=== PATIENT | female | born 1955 | race Caucasian/White ===

== ENCOUNTER → 2018-07-03 13:15 | Outpatient (CLI) | payer OTHER, SELFPAY ==
--- NOTE | 2018-07-03 | DI.US.S_ITS ---
PROCEDURE: US THYROID INDICATIONS: THYROMEGALY TECHNIQUE: Real-time scanning was performed of the thyroid gland, with image documentation. COMPARISON: None. FINDINGS: Right: Thyroid lobe measures 4.4 x 1.4 x 1.7 cm, and is mildly heterogeneous in echotexture. Left: Thyroid lobe measures 3.6 x 1.6 x 1.5 cm, and is mildly heterogeneous in echotexture. Isthmus: 1.0 mm thick. IMPRESSION: Mildly heterogeneous thyroid and no focal nodules. Dictated by: Brennan SABILLON Interpreted: Armand Branch MD on 07/03/2018 at 14:44 Approved by: Florentino Branch M.D. on 07/03/2018 at 16:56
== END ==
PROVIDERS: PCP Family Medicine; Visit Provider Family Medicine
DX: E01.0 Iodine-deficiency related diffuse (endemic) goiter (principal)
CPT/HCPCS: 76536

== ENCOUNTER → 2019-01-09 11:21 | Outpatient (CLI) | payer OTHER, SELFPAY ==
--- NOTE | 2019-01-09 | DI.MG.S_ITS ---
BILATERAL DIGITAL SCREENING MAMMOGRAM 3D/2D WITH CAD: 01/09/2019 CLINICAL: Routine screening. Family history of breast cancer. Comparison is made to exams dated: 12/26/2017 mammogram, 12/13/2017 mammogram, and 11/30/2016 mammogram - [facility]. The tissue of both breasts is heterogeneously dense. This may lower the sensitivity of mammography. Current study was also evaluated with a Computer Aided Detection (CAD) system. No significant masses, calcifications, or other findings are seen in either breast. There has been no significant interval change. IMPRESSION: NEGATIVE There is no mammographic evidence of malignancy. A 1 year screening mammogram is recommended. This exam was interpreted at Station ID: [id number]. NOTE: For mammograms, a report in lay terms will be sent to the patient. Approximately 15% of breast malignancies will not be visualized mammographically. In the management of a palpable breast mass, a negative mammogram must not discourage biopsy of a clinically suspicious lesion. Electronically Signed By: Fly brush/james:01/09/2019 17:56:06 letter sent: Normal Exam ACR BI-RADS Category 1: Negative 3341F
== END ==
PROVIDERS: PCP Family Medicine; Visit Provider Family Medicine
DX: Z12.31 Encounter for screening mammogram for malignant neoplasm of breast (principal); Z80.3 Family history of malignant neoplasm of breast
CPT/HCPCS: 77063; 77067

== ENCOUNTER → 2019-02-23 12:42 | Outpatient (CLI) | payer OTHER, SELFPAY | PROVIDERS: PCP Family Medicine; Visit Provider Family Medicine | DX: M85.851 Other specified disorders of bone density and structure, right thigh (principal); Z78.0 Asymptomatic menopausal state; Z82.62 Family history of osteoporosis | CPT/HCPCS: 77080 ==

== ENCOUNTER 2019-08-03 12:55 | Day surgery (SDC) | payer OTHER, SELFPAY ==
[2019-08-03] VITALS (9 sets, daily range): BP systolic 92–131; BP diastolic 52–75; PULSE 59–67; RESP 12–19; TEMP 36–37.1; O2SAT 95–98; BMI 22.9
--- NOTE | 2019-08-03 | PATH_ITS ---
[facility] Accession Number: [id number] . 01 Material submitted: . cecum - CECAL POLYP, 6-8 MM X2 . 02 Diagnosis: Cecum, Polyp 6-8 mm x2, Biopsy: Fragments of tubular adenoma and sessile serrated adenoma. [facility] 08/06/2019 1031 Local . 02 Electronically signed: . Aura May MD, Pathologist NPI- [id number] . 01 Gross description: . CECAL POLYP, 6-8 MM X2: Received in formalin are 4 fragment(s) of conway, soft tissue measuring 0.1 x 0.1 x 0.1 cm to 0.2 x 0.2 x 0.2 cm which is entirely submitted and submitted entirely in 1 cassette(s) /[facility] [place] 08/03/2019 2324 Local . 02 Pathologist provided ICD-10: D12.0 . 02 CPT . 832211 Performed at: 01 [facility] [address], [place], [place] [id number] MD Christian Arias MD Phone: [phone] Performed at: 02 [facility] [address] [place], [place] [id number] MD Aura May MD Phone: [phone]
[2019-08-03] MEDS: HYOSCYAMINE 0.125 MG TABLET PO (13:16)
[2019-08-03] MEDS: SODIUM CHLORIDE 0.9% 1,000 ML 84 ML IV (13:24)
--- NOTE | 2019-08-03 13:49 | PM.OP.ENDO ---
Operative Date/Time/Diagnoses Date of procedure: 08/03/19 Time of procedure: 13:49 Pre-op diagnosis: 1. History of colon polyps 2. Screening for colon cancer Post-op diagnosis: other (Cecal polyp x2, 6-8 mm, removed with cold biopsy forceps) Procedure & Clinicians Study performed: Colonoscopy Same procedure as scheduled: Yes Indications: 1. History of colon polyps 2. Screening for colon cancer Surgeon: Nunu Castañeda Procedure Notes Procedure in detail: ENDOSCOPIST: Nunu Castañeda MD Sedation RN: Luis Alberto Foley RN Sedation start time: 1:53 p.m. Sedation in time: 2:18 p.m. PROCEDURE: Colonoscopy with biopsy INDICATIONS: 1. History of colon polyps 2. Screening for colon cancer MEDICATION: Levsin 0.125 mg sublingual, incremental doses of Versed and fentanyl until appropriate level sedation achieved. ASA CLASS: 2 CECAL WITHDRAWAL TIME: 13 minutes COMPLICATIONS: None. EXTENT OF PROCEDURE: Cecum. QUALITY OF PREP: Good with portions of liquid stool. PROCEDURE: Prior to insertion of the colonoscope, a digital rectal examination was accomplished with circumferential palpation of the distal rectal mucosa without significant findings being noted. The high-definition pediatric colonoscope was passed into the rectum in the usual fashion and advanced over to the cecum without difficulty. The ileocecal valve, appendiceal stoma, and medial wall all could be inspected and 2 cecal polyps were seen, 6-8 mm, removed with cold biopsy forceps, excellent hemostasis noted. ASCENDING COLON: As the colonoscope was withdrawn, care was taken to expose and inspect the haustral folds and no abnormalities were seen. HEPATIC FLEXURE: Normal no polyps, diverticula or other abnormalities. TRANSVERSE COLON: Normal no polyps, diverticula or other abnormalities. DESCENDING COLON: Normal no polyps, diverticula or other abnormalities. SIGMOID COLON: Normal no polyps, diverticula or other abnormalities. RECTUM: Normal. J maneuver was produced. There was no significant perianal disease. The J maneuver was broken. The remainder of the rectum was inspected and there was no external hemorrhoid disease. The scope was withdrawn. IMPRESSION: 1. Cecal polyp x2, 6-8 mm, removed with cold biopsy forceps PLAN: 1. Follow-up in clinic status post pathology results. The possibility of a missed lesion including a malignancy has been discussed with the patient previously. Potential alarm symptoms have been discussed and should be reported immediately. Scope withdrawal time: 13 Sedation minutes: 25 Findings: polyp Specimen(s): other (Cecal x2) Complications: none Impression: Cecal polyp x2, 6-8 mm Post-procedure Recommendations: Will call with biopsy results Follow up: weeks (2) Disposition: PACU
[2019-08-03] MEDS: fentaNYL 250 MCG/5 ML INJ IV (14:40)
[2019-08-03] MEDS: MIDAZOLAM 5 MG/5 ML VIAL IV (14:40)
--- NOTE | 2019-08-03 14:41 | SUR.OPER ---
A good ECG tracing was obtained at the start of the case. Shortly after starting the procedure the ECG stopped working and various methods of trouble shooting was unsuccessful. We used a second machine and had good results.
--- NOTE | 2019-08-03 16:04 | SUR.PHASEII ---
1540 Home w/spouse. Denies light-headedness/dizziness. Tolerated fluids well, stable on feet.
== END 2019-08-03 15:40 | disposition home or self-care (01) ==
PROVIDERS: PCP Family Medicine; Visit Provider Student in an Organized Health Care Education/Training Program
PROC: 0DJD8ZZ Inspection of Lower Intestinal Tract, Via Natural or Artificial Opening Endoscopic (ICD-10-PCS; CPT 45378; principal; 2019-08-03 14:00)
DX: Z86.010 Personal history of colon polyps (principal); D12.0 Benign neoplasm of cecum
CPT/HCPCS: 45380; J2250; J3010

== ENCOUNTER → 2020-01-11 11:02 | Outpatient (CLI) | payer OTHER, SELFPAY ==
--- NOTE | 2020-01-11 11:04 | DI.MG.S_ITS ---
BILATERAL DIGITAL SCREENING MAMMOGRAM 3D/2D WITH CAD: 01/11/2020 CLINICAL: Routine screening. Family history of breast cancer. Comparison is made to exams dated: 01/09/2019 mammogram, 12/26/2017 mammogram, 12/13/2017 mammogram, and 11/30/2016 mammogram - [facility]. The tissue of both breasts is heterogeneously dense. This may lower the sensitivity of mammography. Current study was also evaluated with a Computer Aided Detection (CAD) system. No significant masses, calcifications, or other findings are seen in either breast. There has been no significant interval change. IMPRESSION: NEGATIVE There is no mammographic evidence of malignancy. A 1 year screening mammogram is recommended. This exam was interpreted at Station ID: [id number]. NOTE: For mammograms, a report in lay terms will be sent to the patient. Approximately 15% of breast malignancies will not be visualized mammographically. In the management of a palpable breast mass, a negative mammogram must not discourage biopsy of a clinically suspicious lesion. Electronically Signed By: Pamela daugherty/james:01/11/2020 12:55:41 letter sent: Normal Exam ACR BI-RADS Category 1: Negative 3341F
== END ==
PROVIDERS: PCP Family Medicine; Referring Provider Family Medicine; Visit Provider Family Medicine
DX: Z12.31 Encounter for screening mammogram for malignant neoplasm of breast (principal); Z80.3 Family history of malignant neoplasm of breast
CPT/HCPCS: 77063; 77067

== ENCOUNTER → 2021-04-03 15:14 | Outpatient (CLI) | payer OTHER, SELFPAY ==
--- NOTE | 2021-04-03 | DI.MG.S_ITS ---
BILATERAL DIGITAL SCREENING MAMMOGRAM 3D/2D WITH CAD: 04/03/2021 CLINICAL: Routine screening. Family history of breast cancer. Comparison is made to exams dated: 01/11/2020 mammogram, 01/09/2019 mammogram, 12/13/2017 mammogram, 11/30/2016 mammogram, and 10/14/2015 mammogram - [facility]. The tissue of both breasts is heterogeneously dense. This may lower the sensitivity of mammography. Current study was also evaluated with a Computer Aided Detection (CAD) system. No significant masses, calcifications, or other findings are seen in either breast. There has been no significant interval change. IMPRESSION: NEGATIVE There is no mammographic evidence of malignancy. A 1 year screening mammogram is recommended. This exam was interpreted at Station ID: [id number]. NOTE: For mammograms, a report in lay terms will be sent to the patient. Approximately 15% of breast malignancies will not be visualized mammographically. In the management of a palpable breast mass, a negative mammogram must not discourage biopsy of a clinically suspicious lesion. Electronically Signed By: Brian campa/james:04/03/2021 16:14:14 letter sent: Normal Exam ACR BI-RADS Category 1: Negative 3341F
== END ==
PROVIDERS: PCP Family Medicine; Referring Provider Family Medicine; Visit Provider Family Medicine
DX: Z12.31 Encounter for screening mammogram for malignant neoplasm of breast (principal); Z80.3 Family history of malignant neoplasm of breast
CPT/HCPCS: 77063; 77067

== ENCOUNTER → 2021-08-14 11:19 | Outpatient (CLI) | payer OTHER, SELFPAY ==
--- NOTE | 2021-08-14 | DI.RAD.S_ITS ---
PROCEDURE: XR HIP W PEL IF DONE LT 2V INDICATIONS: LEFT HIP PAIN TECHNIQUE: AP pelvis with lateral view(s) of the left hip(s). COMPARISON: None. FINDINGS: Bones: No fractures or dislocations. Pelvic ring appears intact. Symmetric narrowing of the femoral acetabular joint spaces with osteophytosis. No suspicious bony lesions. Soft tissues: The visualized bowel gas pattern is normal. No suspicious soft tissue calcifications. IMPRESSION: No acute osseous abnormality. Dictated by: Derrek Salazar M.D. on 08/14/2021 at 12:07 Approved by: Derrek Salazar M.D. on 08/14/2021 at 12:15
== END ==
PROVIDERS: PCP Family Medicine; Referring Provider Family Medicine; Visit Provider Family Medicine
DX: M25.552 Pain in left hip (principal)
CPT/HCPCS: 73502

== ENCOUNTER → 2022-04-06 10:48 | Outpatient (CLI) | payer OTHER, SELFPAY ==
--- NOTE | 2022-04-06 | DI.MG.S_ITS ---
BILATERAL DIGITAL SCREENING MAMMOGRAM 3D/2D WITH CAD: 04/06/2022 CLINICAL: Routine screening. Family history of breast cancer. Comparison is made to exams dated: 04/03/2021 mammogram, 01/11/2020 mammogram, and 01/09/2019 mammogram - [facility]. The tissue of both breasts is heterogeneously dense. This may lower the sensitivity of mammography. Current study was also evaluated with a Computer Aided Detection (CAD) system. There is a new oval asymmetry in the left breast posterior depth central to the nipple seen on the craniocaudal view only. No other significant masses, calcifications, or other findings are seen in either breast. IMPRESSION: INCOMPLETE: NEEDS ADDITIONAL IMAGING EVALUATION The new oval asymmetry in the left breast is indeterminate. Additional views with possible ultrasound are recommended. This exam was interpreted at Station ID: [id number]. NOTE: For mammograms, a report in lay terms will be sent to the patient. Approximately 15% of breast malignancies will not be visualized mammographically. In the management of a palpable breast mass, a negative mammogram must not discourage biopsy of a clinically suspicious lesion. Electronically Signed By: Micah davies/james:04/06/2022 12:52:52 letter sent: Additional Imaging Needed ACR BI-RADS Category 0: Incomplete 3340F
== END ==
PROVIDERS: PCP Family Medicine; Referring Provider Family Medicine; Visit Provider Family Medicine
DX: Z12.31 Encounter for screening mammogram for malignant neoplasm of breast (principal); Z80.3 Family history of malignant neoplasm of breast; N64.89 Other specified disorders of breast; M85.89 Other specified disorders of bone density and structure, multiple sites
CPT/HCPCS: 77063; 77067; 77080

== ENCOUNTER → 2023-04-14 12:31 | Outpatient (CLI) | payer MEDICARE, SELFPAY ==
--- NOTE | 2023-04-14 | DI.MG.S_ITS ---
BILATERAL DIGITAL SCREENING MAMMOGRAM 3D/2D WITH CAD: 04/14/2023 CLINICAL: Routine screening. Family history of breast cancer. Comparison is made to exams dated: 04/06/2022 mammogram, 04/03/2021 mammogram, and 01/11/2020 mammogram - [facility]. Both breasts are heterogeneously dense, which may obscure small masses (category c / 51-75% glandular tissue). Current study was also evaluated with a Computer Aided Detection (CAD) system. There is a mass in the left breast at 1 o'clock posterior depth. No other significant masses, calcifications, or other findings are seen in either breast. IMPRESSION: INCOMPLETE: NEEDS ADDITIONAL IMAGING EVALUATION The mass in the left breast is indeterminate. Additional views with possible ultrasound are recommended. Based on Tyrer-Cuzick model (a risk assessment model), the patient's lifetime risk is 24.3% and her 10 year risk is 12.2%. If a patient has an elevated risk, a more comprehensive evaluation should be considered and/or a referral to a genetic counselor. The [place] [employer], [employer], and NCCN Guidelines advise the consideration of Breast MRI as an adjunct to screening mammography in patients whose Lifetime risk to develop breast cancer is 20% or higher. This exam was interpreted at Station ID: [id number]. NOTE: For mammograms, a report in lay terms will be sent to the patient. Approximately 15% of breast malignancies will not be visualized mammographically. In the management of a palpable breast mass, a negative mammogram must not discourage biopsy of a clinically suspicious lesion. Electronically Signed By: Peter Dominguez M.D. lc/:04/14/2023 13:08:13 letter sent: Additional Imaging Needed ACR BI-RADS Category 0: Incomplete 3340F
== END ==
PROVIDERS: PCP Family Medicine; Referring Provider Family Medicine; Visit Provider Family Medicine
DX: Z12.31 Encounter for screening mammogram for malignant neoplasm of breast (principal); Z80.3 Family history of malignant neoplasm of breast
CPT/HCPCS: 77063; 77067

== ENCOUNTER → 2023-04-29 08:45 | Outpatient (CLI) | payer MEDICARE, SELFPAY ==
--- NOTE | 2023-04-29 | DI.MG.S_ITS ---
UNILATERAL LEFT DIGITAL DIAGNOSTIC MAMMOGRAM 3D/2D WITH ADDITIONAL VIEWS: 04/29/2023 CLINICAL: Additional evaluation requested from prior study. Comparison is made to exams dated: 04/14/2023 mammogram - [facility], 04/20/2022 ultrasound, 04/20/2022 mammogram - [facility], 04/06/2022 mammogram, and 04/03/2021 mammogram - [facility]. The left breast is heterogeneously dense, which may obscure small masses (category c / 51-75% glandular tissue). There is a 0.5 cm oval equal density mass in the left breast at 2 o'clock middle depth. This is seen in additional views. No other significant masses or calcifications are seen in the breast. IMPRESSION: INCOMPLETE: NEEDS ADDITIONAL IMAGING EVALUATION The 0.5 cm oval equal density mass in the left breast resembles a cyst or a lymph node and is indeterminate. An ultrasound is recommended for further evaluation and is scheduled to immediately follow this examination. Based on Tyrer-Cuzick model (a risk assessment model), the patient's lifetime risk is 24.3% and her 10 year risk is 12.2%. If a patient has an elevated risk, a more comprehensive evaluation should be considered and/or a referral to a genetic counselor. The [place] [employer], [employer], and NCCN Guidelines advise the consideration of Breast MRI as an adjunct to screening mammography in patients whose Lifetime risk to develop breast cancer is 20% or higher. This exam was interpreted at Station ID: [id number]. NOTE: For mammograms, a report in lay terms will be sent to the patient. Approximately 15% of breast malignancies will not be visualized mammographically. In the management of a palpable breast mass, a negative mammogram must not discourage biopsy of a clinically suspicious lesion. Electronically Signed By: Hipolito Lovelace M.D. aty/:04/29/2023 09:09:53 ACR BI-RADS Category 0: Incomplete 3340F
--- NOTE | 2023-04-29 | DI.US.S_ITS ---
ULTRASOUND OF LEFT BREAST: 04/29/2023 CLINICAL: Additional views of left breast. Comparison is made to exams dated: 04/29/2023 mammogram, 04/14/2023 mammogram - [facility], 04/20/2022 ultrasound, and 04/20/2022 mammogram - [facility]. Color flow and real-time ultrasound of the left breast were performed. Carty scale images of the real-time examination were reviewed. There is a 0.5 cm x 0.3 cm x 0.4 cm wider than tall oval cyst in the left breast at 1 o'clock middle depth 4 cm from the nipple. This oval cyst is hypoechoic with internal echoes. This correlates with mammography findings. Color flow imaging demonstrates that there is no vascularity present. IMPRESSION: PROBABLY BENIGN The 0.5 cm x 0.3 cm x 0.4 cm wider than tall oval cyst in the left breast is consistent with a complicated cyst and is probably benign. A follow-up left mammogram and an ultrasound in 6 months is recommended to demonstrate stability. Findings and recommendations were conveyed to the patient during today's evaluation. This exam was interpreted at Station ID: [id number]. Electronically Signed By: Hipolito Lovelace M.D. aty/:04/29/2023 10:03:36 letter sent: Followup Recommended Ultrasound BI-RADS: 3 Probably benign
== END ==
PROVIDERS: PCP Family Medicine; Referring Provider Family Medicine; Visit Provider Family Medicine
DX: R92.8 Other abnormal and inconclusive findings on diagnostic imaging of breast (principal); N60.02 Solitary cyst of left breast
CPT/HCPCS: 76642; 77065; G0279

== ENCOUNTER → 2023-10-25 10:25 | Outpatient (CLI) | payer MEDICARE, SELFPAY ==
--- NOTE | 2023-10-25 | DI.US.S_ITS ---
LIMITED ULTRASOUND OF LEFT BREAST: 10/25/2023 CLINICAL: Patient returns today to evaluate a focal asymmetry in the left breast. Comparison is made to exams dated: 10/25/2023 mammogram, 04/29/2023 ultrasound, 04/29/2023 mammogram, 04/14/2023 mammogram - [facility], 04/20/2022 ultrasound, and 04/20/2022 mammogram - [facility]. Color flow ultrasound of the left breast 1 o'clock region was performed. Carty scale images of the real-time examination were reviewed. There is a 0.5 cm x 0.5 cm x 0.4 cm oval cyst in the left breast at 1 o'clock middle depth 4 cm from the nipple. This oval cyst is hypoechoic with a well-defined boundary and posterior acoustic enhancement. This abnormality is not significantly changed and correlates with mammography findings. Color flow imaging demonstrates that there is no vascularity present. IMPRESSION: PROBABLY BENIGN The 0.5 cm probably complicated cyst in the left breast is stable, and is probably benign. A follow-up left mammogram and an ultrasound in 6 months is recommended to demonstrate stability. The patient will be due for bilateral mammograms at that same visit. Findings and recommendations were conveyed to the patient at time of exam. This exam was interpreted at Station ID: [id number]. Electronically Signed By: Pamela daugherty/:10/25/2023 12:24:04 letter sent: Followup Recommended Ultrasound BI-RADS: 3 Probably benign
--- NOTE | 2023-10-25 | DI.MG.S_ITS ---
UNILATERAL LEFT DIGITAL DIAGNOSTIC MAMMOGRAM 3D/2D: 10/25/2023 CLINICAL: Short term follow up. Comparison is made to exams dated: 04/29/2023 mammogram, 04/14/2023 mammogram, 04/06/2022 mammogram, and 04/03/2021 mammogram - [facility]. The left breast is heterogeneously dense, which may obscure small masses (category c / 51-75% glandular tissue). There is a stable 0.5 cm oval equal density mass in the left breast at 2 o'clock middle depth. This is seen in additional views. No other significant masses or calcifications are seen in the breast. Left mammogram is otherwise stable. IMPRESSION: INCOMPLETE: NEEDS ADDITIONAL IMAGING EVALUATION The 0.5 cm mass in the left breast which resembles a cyst or a lymph node is stable. An ultrasound is recommended. This was performed immediately following this exam. Left mammogram is otherwise stable. Based on Tyrer-Cuzick model (a risk assessment model), the patient's lifetime risk is 23.3% and her 10 year risk is 12.2%. If a patient has an elevated risk, a more comprehensive evaluation should be considered and/or a referral to a genetic counselor. The [place] [employer], [employer] [employer], and NCCN Guidelines advise the consideration of Breast MRI as an adjunct to screening mammography in patients whose Lifetime risk to develop breast cancer is 20% or higher. This exam was interpreted at Station ID: [id number]. NOTE: For mammograms, a report in lay terms will be sent to the patient. Approximately 15% of breast malignancies will not be visualized mammographically. In the management of a palpable breast mass, a negative mammogram must not discourage biopsy of a clinically suspicious lesion. Electronically Signed By: Pamela daugherty/:10/25/2023 10:52:59 ACR BI-RADS Category 0: Incomplete 3340F
== END ==
PROVIDERS: PCP Family Medicine; Referring Provider Family Medicine; Visit Provider Family Medicine
DX: R92.8 Other abnormal and inconclusive findings on diagnostic imaging of breast; N60.02 Solitary cyst of left breast
CPT/HCPCS: 76642; 77065; G0279

== ENCOUNTER → 2024-04-17 10:18 | Outpatient (CLI) | payer MEDICARE, SELFPAY ==
--- NOTE | 2024-04-17 10:20 | DI.US.S_ITS ---
ULTRASOUND OF LEFT BREAST: 04/17/2024 CLINICAL: Patient returns for a 6 month follow up of the left breast. Comparison is mad to exams dated: 10/25/2023 ultrasoung, 10/25/2023 mammogram, 04/29/2023 ultrasound, 04/29/2023 mammogram, and 04/14/2023 mammogram - [facility] Color flow and real-time ultrasound of the left breast were performed. Carty scale images of the real-time examination were reviewed. Redemonstration of previously described 0.6 cm x 0.5 cm x 0.3 cm oval cyst in the left breast at 1 o'clock middle depth 4 cm from the nipple. This oval cyst is hypoechoic with a well-defined boundary and posterior acoustic enhancement. This abnormality is not significantly changed and correlates with mammography findings. Color flow imaging demonstrates that there is no vascularity present. IMPRESSION: PROBABLY BENIGN The 0.6 cm x 0.5 cm x 0.3 cm oval cyst in the left breast most likely is a complicated cyst and is probably benign. A follow-up bilateral mammogram and a left ultrasound in 12 months is recommended. Findings and recommendations were conveyed to the patient during today's evaluation. This exam was interpreted at Station ID: [id number]. Electronically Signed By: Hipolito ames/:04/17/2024 18:15:00 Entry: - 04/18/2024 16:32:43 letter sent: Followup Recommended Ultrasound BI-RADS: 3 Probably benign
--- NOTE | 2024-04-17 10:20 | DI.MG.S_ITS ---
BILATERAL DIGITAL DIAGNOSTIC MAMMOGRAM 3D/2D SHORT-TERM FOLLOW-UP: 04/17/2024 CLINICAL: Patient returns today to evaluate a focal asymmetry in the left breast. Comparison is made to exams dated: 10/25/2023 ultrasound, 10/25/2023 mammogram, 04/29/2023 ultrasound, 04/29/2023 mammogram, and 04/14/2023 mammogram - [facility]. Both breasts are heterogeneously dense, which may obscure small masses (category c / 51-75% glandular tissue). There is a 0.5 cm oval equal density mass in the left breast at 2 o'clock middle depth. This is not significantly changed. No other significant masses, calcifications, or other findings are seen in either breast. IMPRESSION: INCOMPLETE: NEEDS ADDITIONAL IMAGING EVALUATION The 0.5 cm oval equal density mass in the left breast resembles a cyst or a lymph node and is indeterminate. An ultrasound is recommended for further evaluation and is scheduled to immediately follow this examination. Based on Tyrer-Cuzick model (a risk assessment model), the patient's lifetime risk is 23.3% and her 10 year risk is 12.2%. If a patient has an elevated risk, a more comprehensive evaluation should be considered and/or a referral to a genetic counselor. The [place] [employer], [employer], and NCCN Guidelines advise the consideration of Breast MRI as an adjunct to screening mammography in patients whose Lifetime risk to develop breast cancer is 20% or higher. This exam was interpreted at Station ID: [id number]. NOTE: For mammograms, a report in lay terms will be sent to the patient. Approximately 15% of breast malignancies will not be visualized mammographically. In the management of a palpable breast mass, a negative mammogram must not discourage biopsy of a clinically suspicious lesion. Electronically Signed By: Hipolito Lovelace M.D. aty/:04/17/2024 18:05:21 ACR BI-RADS Category 0: Incomplete 3340F
--- NOTE | 2024-04-17 10:20 | DI.RAD.S_ITS ---
PROCEDURE: XR DEXA AXIAL SKELETON INDICATIONS: screening for osteoporosis COMPARISON: [facility], HEMAL, XR DEXA AXIAL SKELETON, 04/06/2022, 10:59. [facility], CR, XR DEXA AXIAL SKELETON, 02/23/2019, 13:07. FINDINGS: Lumbar Spine: Bone mineral density 1.049 g/cm2, T score 0, previously 0.2. Left Hip: Bone mineral density 0.796 g/cm2, T score -1.2, previously -1. Left Femoral Neck: Bone mineral density 0.706 g/cm2, T score -1.3, osteopenia. Right Hip: Bone mineral density is 0.660 g/cm2, T score -2.3, previously -2.0. Right Femoral Neck: Bone mineral density 0.572 g/cm2, T score -2.5, osteoporosis. Fracture Risk Calculation (when applicable): Not reported due to osteoporosis. (T score greater or equal to -1.0 to: NORMAL) (T score from -1.1 to -2.4: OSTEOPENIA) (T score less than or equal to -2.5: OSTEOPOROSIS) IMPRESSION: Osteoporosis. Follow-up guidelines as follows: Osteoporosis: Consider a repeat DEXA and Vertebral Fracture Assessment (VFA) exam in 2 years or sooner if medically necessary, to reassess this patient's status. Osteopenia: Consider a repeat DEXA in 2-3 years to reassess this patient's status, or if there is a new clinical indication. Normal: Consider a repeat DEXA in 5 years or sooner, or if there is a new clinical indication. All treatment decisions require clinical judgment and consideration of individual patient factors, including patient preferences, comorbidities, previous drug use, risk factors not captured in the FRAX model (e.g., frailty, falls, vitamin D deficiency, increased bone turnover, interval significant decline in bone density ) and possible under- or over-estimation of fracture risk by FRAX. In addition, the NOF Guide recommends that FDA-approved medical therapies be considered in postmenopausal women and men age >= 50 years with a: * Hip or vertebral (clinical or morphometric) fracture * T-score of <=-2.5 at the spine or hip * Ten-year fracture probability by FRAX of >= 3% for hip fracture or >=20% for major osteoporotic fracture. People with diagnosed cases of osteoporosis or at high risk for fracture should have regular bone mineral density tests. For patients eligible for Medicare, routine testing is allowed once every 2 years. The testing frequency can be increased to one year for patients who have rapidly progressing disease, those who are receiving or discontinuing medical therapy to restore bone mass, or have additional risk factors. Dictated by: Brandon Hartmann M.D. on 04/17/2024 at 13:56 Approved by: Brandon Hartmann M.D. on 04/17/2024 at 13:57
== END ==
LOC: MAMMO 10:18
PROVIDERS: PCP Family Medicine; Referring Provider Family Medicine; Visit Provider Family Medicine
DX: R92.8 Other abnormal and inconclusive findings on diagnostic imaging of breast (principal); R92.333 Mammographic heterogeneous density, bilateral breasts; N60.02 Solitary cyst of left breast; M81.0 Age-related osteoporosis without current pathological fracture
CPT/HCPCS: 76642; 77066; 77080; G0279

== ENCOUNTER → 2024-07-03 10:53 | Outpatient (CLI) | payer MEDICARE, SELFPAY ==
[2024-07-03 12:35] LABS: Add Manual Diff / Slide Review NO; Basophils Absolute Auto 0 /uL (0-100); Basophils Percent Auto 0.5 % (0-2); Eosinophils Absolute Auto 400 /uL (0-450); Eosinophils Percent Auto 7.4 % (2-4); Hematocrit 41.3 % (36-46); Hemoglobin 13.9 g/dL (12.0-16.0); Lymphocytes Absolute Auto 1400 /uL (1100-4500); Lymphocytes Percent Auto 25.5 % (25-40); Mean Corpuscular HGB Conc 33.6 % (30-36); Mean Corpuscular Hemoglobin 29.3 PG (26-34); Mean Corpuscular Volume 87.3 fL (80-100); Monocytes Absolute Auto 400 /uL (0-900); Monocytes Percent Auto 7.4 % (3-14); Neutrophils Absolute Auto 3200 /uL (1500-7000); Neutrophils Percent Auto 59.2 % (50-75); Platelet Count 231 X10^3/uL (150-400); Red Blood Cell Count 4.73 X10^6/uL (4.0-5.2); Red Cell Distribution Width 14.4 % (11.6-14.8); White Blood Cell Count 5.4 X10^3/uL (4.5-11.0)
[2024-07-03 13:04] LABS: Alanine Aminotransferase 60 IU/L (<35); Albumin 4.3 g/dL (3.5-5.0); Albumin Globulin Ratio 1.6 (1.0-2.8); Alkaline Phosphatase 78 U/L (38-126); Aspartate Aminotransferase 59 IU/L (14-36); BUN Creatinine Ratio 22.7 (6-22); Bilirubin Total 0.7 mg/dL (0.2-1.3); Blood Urea Nitrogen 15 mg/dL (7-17); Calcium 9.3 mg/dL (8.4-10.2); Carbon Dioxide 29 mmol/L (22-32); Chloride 105 mmol/L (98-107); Cholesterol 208 mg/dL (140-199); Estimated Glomerular Filt Rate > 60 mL/min (>60); Globulin 2.7 g/dL (1.7-4.1); Glucose 91 mg/dL (80-110); HDL Cholesterol 75 mg/dL (40-60); HEMOLYSIS < 15 (0-50); LDL Cholesterol Calculated 106 mg/dL (<100); Potassium 4.4 mmol/L (3.4-5.1); Sodium 141 mmol/L (137-145); Triglycerides 135 mg/dL (35-150)
== END ==
PROVIDERS: PCP Family Medicine; Referring Provider Family Medicine; Visit Provider Family Medicine
DX: Z00.00 Encounter for general adult medical examination without abnormal findings (principal); Z13.6 Encounter for screening for cardiovascular disorders
CPT/HCPCS: 36415; 80053; 80061; 85025

== ENCOUNTER 2024-07-24 12:05 | Day surgery (SDC) | payer MEDICARE, SELFPAY ==
[2024-07-24 12:28] VITALS: BP 147/79; PULSE 62; RESP 16; TEMP 36.2; O2SAT 97
[2024-07-24] MEDS: LACTATED RINGERS 1,000 ML 42 ML IV (12:38)
--- NOTE | 2024-07-24 13:16 | P.HP_ITS ---
History of Present Illness History of Present Illness Date Patient Seen: 07/24/24 Time Patient Seen: 13:17 Chief complaint: Colonoscopy Narrative: 68-year-old woman here for screening colonoscopy. Personal history of colonic polyps last colonoscopy 2018. No family history of colon cancer. No abdominal concerns today. [facility] Medical History (Updated 07/24/24 @ 13:17 by Osvaldo Rod MD) Osteopenia Fibroids Thyromegaly Colon polyp Surgical History (Updated 01/21/24 @ 20:18 by Ciara Griffin) Anesthesia Basal cell carcinoma Hx of cholecystectomy History of hysterectomy Family History (Updated 01/21/24 @ 20:20 by Ciara Griffin) Mother Hypertension Osteoporosis Brother Cancer Sister Cancer Social History marital status: number of children: 0 household members: spouse Smoking Status: Never smoker alcohol intake: current Meds Home Medications and Allergies Home Medications Medication Instructions Recorded Confirmed Type [FLAX OIL] 1,000 mg PO QDAY ##0 09/05/17 07/10/24 History ascorbic acid (vitamin C) 500 mg 500 mg PO QDAY ##0 09/05/17 07/24/24 History tablet calcium citrate 315 mg-vitamin D3 1 tab PO QDAY ##0 09/05/17 07/24/24 History 5 mcg (200 unit) tablet cholecalciferol (vitamin D3) 50 2,000 unit PO DAILY ##0 09/05/17 07/24/24 History mcg (2,000 unit) tablet (Vitamin D3) multivitamin (Multiple Vitamins 1 tab PO QDAY ##0 09/05/17 07/24/24 History tablet) omega 3-eaz-vfx-fish oil 1,000 mg 1,000 mg PO QDAY ##0 09/05/17 07/24/24 History (120 mg-180 mg) capsule (Fish Oil) alendronate 70 mg tablet 70 mg PO QWEEK #12 tabs 05/15/24 07/24/24 Rx Allergies Allergy/AdvReac Type Severity Reaction Status Date / Time No Known Drug Allergies Allergy Verified 07/24/24 12:19 Exam Vital Signs (past 8 hours): - 07/24/24 12:28 Temperature 97.1 F L Pulse Rate 62 Respiratory Rate 16 Blood Pressure 147/79 H Pulse Oximetry 97 Oxygen Delivery Method Room Air Oxygen Delivery Method Room Air Narrative Exam Narrative: General adult woman alert oriented no acute distress Chest nonlabored respiration Extremities warm well perfused Assessment & Plan Assessment and plan (1) Personal history of colonic polyps: Status: Acute Assessment & Plan narrative: The patient requires colorectal screening and colonoscopy is recommended. Technical details were discussed. Risks, benefits, alternatives explained. Risks including but not limited to myocardial infarction, aspiration, bleeding, pain, missed lesion, incomplete examination, need for further radiographic studies, intestinal injury, and need for major abdominal surgery were discussed. All questions were answered to their satisfaction, and they are in agreement with this plan. Time-Based Coding :: [TOTAL MINUTES] spent with patient and on the chart (including review of chart, obtaining history, exam, reviewing outside data, placing orders, documenting exam and treatment plan, and counseling patient) on [DATE].
[2024-07-24 13:47] VITALS: BP 110/71; PULSE 61; RESP 13; TEMP 36.7; O2SAT 99
[2024-07-24 13:54] VITALS: BP 117/73; PULSE 70; RESP 13; TEMP 36.7; O2SAT 99
--- NOTE | 2024-07-24 13:54 | P.OP.COLON_ITS ---
Operative Date/Time/Diagnoses Date of procedure: 07/24/24 Time of procedure: 13:54 Pre-op diagnosis: Personal history of colonic polyps Procedure & Clinicians Study performed: Screening colonoscopy Same procedure as scheduled: Yes Indications: Screening Surgeon: Osvaldo Rod Procedure Notes Procedure in detail: The history and physical was performed/updated and the patient is ASA class is 2. The procedure was discussed in detail with the patient. Potential risks complications including infection, bleeding, missed diagnosis, perforation, need for surgery, and were explained. Their questions were answered and informed consent was obtained. Patient was brought to the procedure room and placed standard monitoring equipment. The patient's vital signs were monitored continuously throughout the entire procedure. Prior to starting time-out was performed. The patient was placed in the left lateral recumbent position. Procedural sedation was administered by anesthesia. Examination began with a thorough inspection of the perianal area there was no evidence of fissures, fistulae, external hemorrhoids or cutaneous malignancy. The colonoscopy scope was then placed into the anal canal and was advanced to the cecum, which was identified by the ileocecal valve, the appendiceal orifice and the confluence of the taenia. The scope was then slowly withdrawn examining colon thoroughly in all directions, irrigating it of any residual stool. The scope was retroflexed within the rectum The patient tolerated the procedure well. They will be discharged once criteria are met. The prep was of good/excellent quality. The withdrawl time was 7 minutes. FINDINGS * No mass or polyps. * Moderate diverticulosis of distal colon Specimen(s): none sent Impression: Diverticulosis Post-procedure Recommendations: Colonoscopy in 10 years and High fiber diet
== END 2024-07-24 14:02 | disposition home or self-care (01) ==
PROVIDERS: PCP Family Medicine; Referring Provider Surgery; Visit Provider Surgery
PROC: 0DJD8ZZ Inspection of Lower Intestinal Tract, Via Natural or Artificial Opening Endoscopic (ICD-10-PCS; CPT 45378; principal; 2024-07-24 13:15)
DX: Z12.11 Encounter for screening for malignant neoplasm of colon (principal); Z86.010 Personal history of colon polyps; K57.30 Diverticulosis of large intestine without perforation or abscess without bleeding
CPT/HCPCS: G0105; J2704

== ENCOUNTER → 2024-11-13 10:41 | Outpatient (CLI) | payer MEDICARE, SELFPAY ==
[2024-11-13 11:43] LABS: Alanine Aminotransferase 75 IU/L (<35); Albumin 4.4 g/dL (3.5-5.0); Albumin Globulin Ratio 1.6 (1.0-2.8); Alkaline Phosphatase 52 U/L (38-126); Aspartate Aminotransferase 72 IU/L (14-36); BUN Creatinine Ratio 23.5 (6-22); Bilirubin Total 0.5 mg/dL (0.2-1.3); Blood Urea Nitrogen 16 mg/dL (7-17); Calcium 9.7 mg/dL (8.4-10.2); Carbon Dioxide 30 mmol/L (22-32); Chloride 105 mmol/L (98-107); Estimated Glomerular Filt Rate > 60 mL/min (>60); Globulin 2.8 g/dL (1.7-4.1); Glucose 101 mg/dL (80-110); HEMOLYSIS 23 (0-50); Potassium 4.4 mmol/L (3.4-5.1); Sodium 139 mmol/L (137-145); Total Protein 7.2 g/dL (6.3-8.2)
== END ==
PROVIDERS: PCP Family Medicine; Referring Provider Family Medicine; Visit Provider Family Medicine
DX: Z00.00 Encounter for general adult medical examination without abnormal findings (principal); M81.0 Age-related osteoporosis without current pathological fracture
CPT/HCPCS: 36415; 80053

== ENCOUNTER → 2024-12-13 12:25 | Outpatient (CLI) | payer MEDICARE, SELFPAY ==
--- NOTE | 2024-12-13 12:27 | DI.US.S_ITS ---
PROCEDURE: US ABDOMEN LIMITED INDICATIONS: elevated liver enzymes TECHNIQUE: Real-time focused scanning was performed of the abdomen, with image documentation. COMPARISON: (Prior imaging is not available for review from the archive at the time of this dictation.) FINDINGS: The liver demonstrates normal size. The liver demonstrates generalized mildly increased echogenicity (images 28 and 33). This decreases ultrasound sensitivity for detection of hepatic masses. Prior cholecystectomy. There is no biliary dilatation, the common bile duct measures 5 mm. No significant pancreatic abnormality is seen on these images. IMPRESSION: Mildly enlarged, mildly fatty infiltrated liver. Status post cholecystectomy, without biliary dilatation. Dictated by: Flo Roman M.D. on 12/13/2024 at 13:12 Approved by: Flo Roman M.D. on 12/13/2024 at 13:15
[2024-12-13 14:08] LABS: Alanine Aminotransferase 82 IU/L (<35); Albumin 4.4 g/dL (3.5-5.0); Albumin Globulin Ratio 1.5 (1.0-2.8); Alkaline Phosphatase 60 U/L (38-126); Aspartate Aminotransferase 70 IU/L (14-36); Bilirubin Total 0.5 mg/dL (0.2-1.3); Bilirubin Unconjugated 0.4 mg/dL (0.0-1.1); Globulin 2.9 g/dL (1.7-4.1); HEMOLYSIS < 15 (0-50); Total Protein 7.3 g/dL (6.3-8.2)
== END ==
LOC: US 12:26
PROVIDERS: PCP Family Medicine; Referring Provider Family Medicine; Visit Provider Family Medicine
DX: R74.8 Abnormal levels of other serum enzymes (principal); K76.0 Fatty (change of) liver, not elsewhere classified; Z90.49 Acquired absence of other specified parts of digestive tract
CPT/HCPCS: 36415; 76705; 80076

== ENCOUNTER → 2025-02-08 16:06 | Outpatient (CLI) | payer MEDICARE, SELFPAY ==
[2025-02-23 14:12] LABS: MuSK Antibodies <1.0 U/mL (.)
[2025-03-25 10:10] LABS: Acetylcholine Blocking AB 20
[2025-03-25 10:11] LABS: Acetylcholine Receptor Bind AB <0.07
[2025-03-25 10:12] LABS: Acetylcholine Modulating AB 4
== END ==
PROVIDERS: PCP Family Medicine; Referring Provider Ophthalmology; Visit Provider Ophthalmology
DX: H02.423 Myogenic ptosis of bilateral eyelids (principal)
CPT/HCPCS: 36415; 83516; 83519; 86255

== ENCOUNTER → 2025-05-23 10:16 | Outpatient (CLI) | payer MEDICARE, SELFPAY ==
--- NOTE | 2025-05-23 10:18 | DI.MG.S_ITS ---
MM diagnostic mammo BI, US breast LT limited: 05/23/2025 BI-RADS: 1 CLINICAL: 69-year old female for bilateral diagnostic mammogram and left diagnostic breast ultrasound that is a follow-up to ultrasound, left on 04/17/2024. Tyrer- Cuzick lifetime risk of 9.6%. Current reported family history of breast cancer: mother and sister. PRIOR EXAMS 04/17/2024, 10/25/2023, 04/29/2023, 04/14/2023. MAMMOGRAPHY TECHNIQUE: 2D and 3D (tomosynthesis) digital mammographic views obtained, with additional images as needed for full coverage. Current study was also evaluated with a Computer Aided Detection (CAD) system. ULTRASOUND TECHNIQUE TARGETED Left Breast Ultrasound: Real-time ultrasound exam was performed focused to area of clinical and/or imaging concern. DENSITY B. There are scattered areas of fibroglandular density. MAMMOGRAPHY FINDINGS Left (finding-1): Upper Outer Quadrant, Middle depth: The previously seen 0.5 cm oval mass is no longer present. No suspicious mass, asymmetry, microcalcification, or other abnormality seen. Bilateral: No suspicious mass, asymmetry, microcalcification, or other abnormality seen. ULTRASOUND FINDINGS Left (finding-1): Upper Outer at 1:00, 4 cm from nipple: The previously described 0.6 cm oval cyst has resolved and is no longer seen on the present examination. This correlates with the mammographic exam. No suspicious sonographic finding present. IMPRESSION: * No evidence of malignancy. RECOMMENDATIONS Bilateral * Annual screening mammography. COMMENTS: Findings and recommendations were conveyed to the patient during today's evaluation. OVERALL ASSESSMENT CATEGORY BI-RADS-1: Negative. The [employer] recommends annual screening mammography beginning at age 40 for women with average risk of breast cancer. ELECTRONICALLY SIGNED: Bria Gant M.D. on 05/23/2025 at 11:39:14 AM PT Interpreting Station ID: [id number]
== END ==
LOC: MAMMO 10:17
PROVIDERS: PCP Family Medicine; Referring Provider Family Medicine; Visit Provider Family Medicine
DX: R92.8 Other abnormal and inconclusive findings on diagnostic imaging of breast (principal); Z80.3 Family history of malignant neoplasm of breast
CPT/HCPCS: 76642; 77066; G0279